=== PATIENT | female | born 1960 | race American Indian/Alaskan Native ===

== ENCOUNTER 2019-01-03 13:00 | Outpatient (CLI) | payer OTHER | END 2019-01-03 13:01 | disposition home or self-care (01) | LOC: PF 13:00 | PROVIDERS: ATTEND Internal Medicine | DX: I11.0 Hypertensive heart disease with heart failure (principal); I50.9 Heart failure, unspecified; J45.909 Unspecified asthma, uncomplicated; M19.90 Unspecified osteoarthritis, unspecified site | CPT/HCPCS: 94010 ==

== ENCOUNTER 2021-01-15 10:15 | Outpatient (CLI) | payer MEDICAID ==
--- NOTE | 2021-01-15 12:02 | XRay Report ---
Hips bilateral 3 views INDICATION: Left hip pain. IMPRESSION: Mild degenerative changes of both hips. No fracture or subluxation. Signer Name: Ruben Singer MD Signed: 01/15/2021 11:58 AM Workstation Name: [id number]
== END 2021-01-15 10:16 | disposition home or self-care (01) ==
LOC: XRAY 10:15
PROVIDERS: ATTEND Anesthesiology
DX: M16.0 Bilateral primary osteoarthritis of hip (principal)
CPT/HCPCS: 73521